=== PATIENT | male | born 1950 | race Caucasian/White ===

== ENCOUNTER 2022-05-28 22:40 | Emergency (ER) | payer OTHER, MEDICAID ==
[~2022-05-28] VITALS: Ht 162.6 cm; Wt 95.0 kg
[~2022-05-28 22:40] MED LIST: ASPI-1406 PO; ATOR40TA70 PO; BENA40TA91 PO; CLON0.1T PO; GABA-532 PO; GLIP10TA10 PO; HYDR25TA PO; INSLAN SQ; METF-416 PO; METO-539 PO; MINO2.5T19 PO; POTA-79 PO
[2022-05-29] MEDS ORDERED: TAM75 MT (03:45)
[2022-05-29 04:24] VITALS: BP 136/81
== END 2022-05-29 04:33 | disposition home or self-care (01) ==
LOC: ER 22:40
DX: M79.18 Myalgia, other site (principal); R11.0 Nausea; R05.9 Cough, unspecified; E11.9 Type 2 diabetes mellitus without complications; Z79.899 Other long term (current) drug therapy; Z20.822 Contact with and (suspected) exposure to COVID-19
CPT/HCPCS: 71045; 87426; 87804; 99284; C9803